=== PATIENT | female | born 1955 | race Caucasian/White ===

== ENCOUNTER → 2019-06-15 | Outpatient (CLI) | payer MEDICARE, OTHER ==
--- NOTE | 2019-06-15 10:45 | Diagnostic Imaging Report ---
PROCEDURE: CT head without contrast. TECHNIQUE: Multiple contiguous axial images were obtained through the brain without the use of intravenous contrast. Auto Exposure Controls were utilized during the CT exam to meet ALARA standards for radiation dose reduction. INDICATION: Dizziness and right upper extremity paresthesia No previous study for comparison. Ventricles and sulci are within normal limits for size. There is focal low density within the deep white matter of the left frontal lobe which extends to the left frontal horn as well as the anterior limb of left internal capsule. There is no evidence of hemorrhage. There is no abnormal mass effect or shift of midline structures. Calvarium is intact. There is mural thickening in the left maxillary sinus. IMPRESSION: Low density in deep white matter left frontal lobe could represent ischemia of indeterminate age. MRI may be of use to exclude possibility of a component of acute ischemia or developing infarct. There is chronic appearing left maxillary sinusitis. Dictated by: Dictated on workstation # [id number]
== END ==
LOC: RAD FS 10:26
PROVIDERS: ATTEND Family Medicine
DX: R90.82 White matter disease, unspecified (principal); R55 Syncope and collapse
CPT/HCPCS: 70450

== ENCOUNTER → 2020-06-23 | Outpatient (CLI) | payer MEDICARE, OTHER ==
--- NOTE | 2020-06-23 14:15 | Diagnostic Imaging Report ---
INDICATION: Pain and soreness 3 weeks COMPARISON: None. FINDINGS: Multiple radiographic views of the sacrum and coccyx were obtained and show no fractures, dislocations, or other acute bony abnormalities. Joint spaces are well maintained throughout. The soft tissues appear unremarkable. No radiopaque foreign bodies are identified. IMPRESSION: Unremarkable radiographic exam of the sacrum and coccyx. Dictated by: Dictated on workstation # [id number]
== END ==
LOC: RAD FS 13:29
PROVIDERS: ATTEND Family Medicine
DX: M53.3 Sacrococcygeal disorders, not elsewhere classified (principal)
CPT/HCPCS: 72220

== ENCOUNTER → 2021-01-16 | Outpatient (CLI) | payer MEDICARE, OTHER ==
--- NOTE | 2021-01-16 14:14 | Diagnostic Imaging Report ---
Indication: Pain and swelling in the right leg. Time of exam: 1:28 PM Curvature of the lumbar spine is normal. There is grade 1/2 spondylolisthesis of L4 on L5. Vertebral body heights are maintained. No acute compression fracture seen. There is multilevel degenerative disc disease with variable disc space narrowing and marginal spurring. There is multilevel facet arthropathy. Multiple surgical clips are identified in the right upper quadrant. Impression: Lumbar spondylosis and spondylolisthesis. No acute bony abnormality is detected. Dictated by: Dictated on workstation # [id number]
== END ==
LOC: RAD FS 13:08
PROVIDERS: ATTEND Nurse Practitioner
DX: M47.816 Spondylosis without myelopathy or radiculopathy, lumbar region (principal); M43.16 Spondylolisthesis, lumbar region
CPT/HCPCS: 72100

== ENCOUNTER 2021-04-02 23:53 | Emergency (ER) | payer MEDICARE, OTHER ==
[~2021-04-02] VITALS: Ht 162.5 cm; Wt 98.0 kg
--- NOTE | 2021-04-03 00:02 | ED General ---
General Stated Complaint: GENERAL PROBLEMS History of Present Illness Date Seen by Provider: Apr 03, 2021 Time Seen by Provider: 00:01 Initial Comments 65-year-old female presents with vague symptom of "feeling flushed" patient reports that happened about ago. She reports that she took 2 of her Lasix and has curious that that might of caused it. Patient is concerned that maybe her potassium might be low. Patient very nonspecific. She denies any cough, fever, nausea, vomiting, chest pain or focal weakness. Allergies and Home Medications Allergies Coded Allergies: duloxetine (Verified Allergy, Severe, 04/03/21) liver failure pregabalin (Verified Allergy, Unknown, 04/03/21) Home Medications Chlorzoxazone 500 Mg Tablet, 500 MG PO QID PRN for MUSCLE CRAMPS, (Reported) Last Action: New Order Cholecalciferol (Vitamin D3) 10 Mcg Capsule, 10 MCG PO DAILY, (Reported) Last Action: New Order Desipramine HCl 25 Mg Tablet, 25 MG PO BID, (Reported) Last Action: New Order Esomeprazole Magnesium 40 Mg Capsule.dr, 40 MG PO DAILY, (Reported) Last Action: New Order Furosemide 20 Mg Tablet, 20 MG PO PRN, (Reported) Last Action: New Order Hydrocodone/Acetaminophen 1 Each Tablet, 1 EACH PO Q6H PRN for PAIN-SEE DOSE INSTRUCTIONS, (Reported) Last Action: New Order Methadone HCl 10 Mg Tablet, 10 MG PO TID, (Reported) Last Action: New Order Multivit-Min/FA/Lycopene/Lut 1 Each Tablet, 1 EACH PO DAILY, (Reported) Last Action: New Order Potassium Chloride 20 Meq Tab.er.prt, 20 MEQ PO DAILY, (Reported) Last Action: New Order Warfarin Sodium 5 Mg Tablet, 5 MG PO DAILY, (Reported) Last Action: New Order Patient Home Medication List Home Medication List Reviewed: Yes Review of Systems Review of Systems Constitutional: see HPI Respiratory: no symptoms reported Cardiovascular: no symptoms reported Gastrointestinal: no symptoms reported Genitourinary: no symptoms reported Musculoskeletal: no symptoms reported Skin: no symptoms reported Psychiatric/Neurological: No Symptoms Reported Physical Exam Vital Signs Vital Signs - First Documented 04/02/21 23:58 Temp 36.5 Pulse 90 Resp 20 B/P (MAP) 171/88 (115) Pulse Ox 95 O2 Delivery Room Air Capillary Refill : Height, Weight, BMI Height: '" Weight: lbs. oz. kg; BMI Method: General Appearance: No Apparent Distress, WD/WN Respiratory: Lungs Clear, Normal Breath Sounds Cardiovascular: Regular Rate, Rhythm, No Edema Extremity: Normal Capillary Refill, Normal Range of Motion Neurologic/Psychiatric: Alert, Oriented x3, Normal Mood/Affect, mobile paramedical examiner II-XII Norm as Tested Skin: Warm/Dry Progress/Results/Core Measures Suspected Sepsis SIRS Temperature: Pulse: Respiratory Rate: Laboratory Tests 04/03/21 00:10: White Blood Count 9.9 Blood Pressure / Mean: Laboratory Tests 04/03/21 00:10: Creatinine 0.68, Platelet Count 364, Total Bilirubin 0.2 Results/Orders Lab Results Laboratory Tests Test 04/03/21 00:10 04/03/21 00:29 Range/Units White Blood Count 9.9 4.3-11.0 10^3/uL Red Blood Count 4.66 4.35-5.85 10^6/uL Hemoglobin 14.6 11.5-16.0 G/DL Hematocrit 43 35-52 % Mean Corpuscular Volume 92 80-99 FL Mean Corpuscular Hemoglobin 31 25-34 PG Mean Corpuscular Hemoglobin Concent 34 32-36 G/DL Red Cell Distribution Width 12.9 10.0-14.5 % Platelet Count 364 130-400 10^3/uL Mean Platelet Volume 9.0 7.4-10.4 FL Immature Granulocyte % (Auto) 0 % Neutrophils (%) (Auto) 50 42-75 % Lymphocytes (%) (Auto) 36 12-44 % Monocytes (%) (Auto) 8 0-12 % Eosinophils (%) (Auto) 5 0-10 % Basophils (%) (Auto) 1 0-10 % Neutrophils # (Auto) 4.9 1.8-7.8 X 10^3 Lymphocytes # (Auto) 3.6 1.0-4.0 X 10^3 Monocytes # (Auto) 0.8 0.0-1.0 X 10^3 Eosinophils # (Auto) 0.5 H 0.0-0.3 10^3/uL Basophils # (Auto) 0.1 0.0-0.1 10^3/uL Immature Granulocyte # (Auto) 0.0 0.0-0.1 10^3/uL Sodium Level 139 135-145 MMOL/L Potassium Level 4.0 3.6-5.0 MMOL/L Chloride Level 102 98-107 MMOL/L Carbon Dioxide Level 27 21-32 MMOL/L Anion Gap 10 5-14 MMOL/L Blood Urea Nitrogen 12 7-18 MG/DL Creatinine 0.68 0.60-1.30 MG/DL Estimat Glomerular Filtration Rate 86 BUN/Creatinine Ratio 18 Glucose Level 120 H 70-105 MG/DL Calcium Level 9.1 8.5-10.1 MG/DL Corrected Calcium 9.0 8.5-10.1 MG/DL Magnesium Level 2.2 1.6-2.4 MG/DL Total Bilirubin 0.2 0.1-1.0 MG/DL Aspartate Amino Transf (AST/SGOT) 32 5-34 U/L Alanine Aminotransferase (ALT/SGPT) 51 0-55 U/L Alkaline Phosphatase 176 H 40-136 U/L Troponin I < 0.30 <0.30 NG/ML Total Protein 6.6 6.4-8.2 GM/DL Albumin 4.1 3.2-4.5 GM/DL Urine Color YELLOW Urine Clarity SL CLOUDY Urine pH 5.5 5-9 Urine Specific [place] 1.025 H 1.016-1.022 Urine Protein NEGATIVE NEGATIVE Urine Glucose (UA) NEGATIVE NEGATIVE Urine Ketones TRACE H NEGATIVE Urine Nitrite NEGATIVE NEGATIVE Urine Bilirubin NEGATIVE NEGATIVE Urine Urobilinogen 0.2 < = 1.0 MG/DL Urine Leukocyte Esterase 1+ H NEGATIVE Urine RBC (Auto) NEGATIVE NEGATIVE Urine RBC RARE /HPF Urine WBC 5-10 H /HPF Urine Squamous Epithelial Cells 5-10 /HPF Urine Crystals NONE /LPF Urine Bacteria MODERATE H /HPF Urine Casts NONE /LPF Urine Mucus SMALL H /LPF Urine Culture Indicated YES My Orders Orders - AZAR,MICHELLE L DO Cbc With Automated Diff (04/03/21 00:02) Comprehensive Metabolic Panel (04/03/21 00:02) Magnesium (04/03/21 00:02) Ua Culture If Indicated (04/03/21:02) Accucheck Stat ONCE (04/03/21 00:02) Troponin I Fs (04/03/21 00:02) Ekg Tracing (04/03/21 00:02) Monitor-Rhythm Ecg Trace Only (04/03/21 00:02) Urine Culture (04/03/21 00:29) Nitrofurantoin Capsule,Macro (Macrobid C (04/03/21 01:15) Vital Signs/I&O 04/02/21 23:58 Temp 36.5 Pulse 90 Resp 20 B/P (MAP) 171/88 (115) Pulse Ox 95 O2 Delivery Room Air Capillary Refill : Progress Note : Progress Note Patient's urinalysis is consistent with a potential urinary tract infection. Patient otherwise normal labs, patient will be treated with Macrobid for urinary tract infection. Patient stable and discharged home ECG Initial ECG Impression Date: Apr 03, 2021 Initial ECG Impression Time: 00:16 Initial ECG Rate: 82 Initial ECG Rhythm: Normal Sinus Initial ECG Impression: Nonspecific Changes Departure Impression Primary Impression: Urinary tract infection Qualified Codes: N30.01 - Acute cystitis with hematuria Disposition: HOME, SELF-CARE Condition: Stable Departure-Patient Inst. Referrals: MARIA DE JESUS ARMSTRONG MD (PCP/Family) Primary Care Physician Patient Instructions: Urinary Tract Infection, Adult (DC) Scripts Nitrofurantoin Macrocrystal (Nitrofurantoin) 100 Mg Capsule 100 MG PO BID, #10 CAP 0 Refills Prov: MICHELLE AZAR DO 04/03/21 MICHELLE AZAR DO Apr 03, 2021 00:02
[2021-04-03] MEDS ORDERED: POTA20TA15 PO (00:41)
[2021-04-03] MEDS ORDERED: WARF-48 PO (00:41)
[2021-04-03] MEDS ORDERED: DESI25TA PO (00:41)
[2021-04-03] MEDS ORDERED: CHLO500T4 PO (00:41)
[2021-04-03] MEDS ORDERED: MULT-1029 PO (00:41)
[2021-04-03] MEDS ORDERED: METH10TA2 PO (00:41)
[2021-04-03] MEDS ORDERED: FURO20TA4 PO (00:41)
[2021-04-03] MEDS ORDERED: HYDR-3820 PO (00:41)
[2021-04-03] MEDS ORDERED: ESOM40CA52 PO (00:41)
[2021-04-03] MEDS ORDERED: CHOL400C9 PO (00:41)
[2021-04-03 00:42] LABS: BILIRUBIN,URINE NEGATIVE (NEGATIVE); COLOR,URINE YELLOW; GLUCOSE, URINE (UA) NEGATIVE (NEGATIVE); KETONES,URINE TRACE (NEGATIVE); LEUKOCYTE ESTERASE ,URINE 1+ (NEGATIVE); NITRITE,URINE NEGATIVE (NEGATIVE); PH,URINE 5.5 (5-9); PROTEIN,URINE NEGATIVE (NEGATIVE)
[2021-04-03 00:43] LABS: HEMATOCRIT 43 % (35-52); HEMOGLOBIN 14.6 G/DL (11.5-16.0); LYMPHOCYTES % (AUTO) 36 % (12-44); MEAN CORPUSCULAR HEMOGLOBIN 31 PG (25-34); MEAN CORPUSCULAR HGB CONC 34 G/DL (32-36); MEAN CORPUSCULAR VOLUME 92 FL (80-99); MONOCYTES % (AUTO) 8 % (0-12); NEUTROPHILS % (AUTO) 50 % (42-75); PLATELET COUNT 364 10^3/uL (130-400); WHITE BLOOD COUNT 9.9 10^3/uL (4.3-11.0)
[2021-04-03 00:44] LABS: BASOPHILS # (AUTO) 0.1 10^3/uL (0.0-0.1); BASOPHILS % (AUTO) 1 % (0-10); EOSINOPHILS # (AUTO) 0.5 10^3/uL (0.0-0.3); EOSINOPHILS % (AUTO) 5 % (0-10); LYMPHOCYTES # (AUTO) 3.6 X 10^3 (1.0-4.0); MONOCYTES # (AUTO) 0.8 X 10^3 (0.0-1.0); NEUTROPHILS # (AUTO) 4.9 X 10^3 (1.8-7.8)
[2021-04-03 00:53] LABS: CARBON DIOXIDE 27 MMOL/L (21-32); CHLORIDE 102 MMOL/L (98-107); SODIUM 139 MMOL/L (135-145)
[2021-04-03 00:54] LABS: ALANINE AMINOTRANSFERASE 51 U/L (0-55); ALBUMIN 4.1 GM/DL (3.2-4.5); ALKALINE PHOSPHATASE 176 U/L (40-136); BILIRUBIN,TOTAL 0.2 MG/DL (0.1-1.0); BUN/CREATININE RATIO 18; CALCIUM 9.1 MG/DL (8.5-10.1); CREATININE SERUM 0.68 MG/DL (0.60-1.30); GFR ESTIMATED 86; GLUCOSE 120 MG/DL (70-105); MAGNESIUM 2.2 MG/DL (1.6-2.4); TOTAL PROTEIN 6.6 GM/DL (6.4-8.2)
[2021-04-03 01:06] LABS: BACTERIA,URINE MODERATE /HPF; RBC,URINE RARE /HPF
[2021-04-03 01:07] LABS: CLARITY,URINE SL CLOUDY
[2021-04-03] MEDS ORDERED: NITROFURANTOIN 100 MG (MACROBID) CAPSULE PO ONE (01:15)
[2021-04-03] MEDS ORDERED: NITR100C PO (01:15)
[2021-04-03 01:32] VITALS: BP 162/80
--- OUTSIDE RECORDS SUMMARY | 2021-04-03 22:43 | XMS REPORT | Encounter Summary ---
Author Author [facility] Organization [facility] Address Unknown Phone Unavailable Care Team Providers Care Coffee Supervisor Name Role Phone Jacob Messina RN Unavailable Dakotah Evans MD Unavailable Yosvany Muller MD PCP Encounter Details Care Team Description Date Type Department 02/21/2021 Travel Social History Date Tobacco Use Types Packs/Day Years Used Never Smoker Smokeless Tobacco: Never Used Drinks/Week oz/Week Comments Alcohol Use 0 Standard drinks or equivalent 0.0 No Sex Assigned at Date Recorded Female 02/09/2021 12:35 PM CDT Date Recorded COVID-19 Exposure Response 02/21/2021 8:48 AM CDT In the last month, have you been in contact with Yes someone who was confirmed or suspected to have Coronavirus / COVID-19? documented as of this encounter Functional Status Date of Assessment Functional Status Response 02/10/2021 Does the patient have a hearing impairment: No 02/10/2021 Does the patient have a visual impairment: Yes 02/10/2021 Does the patient have impaired ambulation: No 02/10/2021 Does the patient have an activity of daily living No (ADL) impairment: 02/10/2021 Does the patient have an instrumental activity of No daily living (IADL) impairment: Date of Assessment Cognitive Status Response 02/10/2021 Does the patient have a cognitive impairment: No documented as of this encounter Plan of Treatment Not on filedocumented as of this encounter Visit Diagnoses Not on filedocumented in this encounter Additional Health Concerns Assessment Noted Time A fall risk assessment has been completed for the pat ient 02/21/2021 9:53 AM CDT PHQ-2 Depression Total Score: 0 02/10/2021 10:33 AM CDT documented as of this encounter
--- OUTSIDE RECORDS SUMMARY | 2021-04-03 22:43 | XMS REPORT | Encounter Summary ---
Author Author [facility] Organization [facility] Address Unknown Phone Unavailable Care Team Providers Care Game Designer/Creative Director Name Role Phone Jacob Messina RN Unavailable Dakotah Evans MD Unavailable Yosvany Muller MD PCP Reason for Visit * Reason Comments Hopper Encounter Details Care Team Description Date Type Department Jenna San, FINGER COBBLER-AERIAL INSTALLER [address] [place] [address] 04/03/2021 Office Visit Hepatology: [facility] [address] [facility] [address] [place] [address] Social History Date Tobacco Use Types Packs/Day Years Used Never Smoker Smokeless Tobacco: Never Used Tobacco Cessation: Counseling Given: No Drinks/Week oz/Week Comments Alcohol Use 0 Standard drinks or equivalent 0.0 No Sex Assigned at Date Recorded Female 02/09/2021 12:35 PM CDT Date Recorded COVID-19 Exposure Response 04/03/2021 1:38 PM CDT In the last month, have you been in contact with No / Unsure someone who was confirmed or suspected to have Coronavirus / COVID-19? documented as of this encounter Last Filed Vital Signs Reading Time Taken Comments Vital Sign 143/72 04/03/2021 1:47 PM CDT Blood Pressure 90 04/03/2021 1:47 PM CDT Pulse - - Temperature - - Respiratory Rate 98% 04/03/2021 1:47 PM CDT Oxygen Saturation - - Inhaled Oxygen Concentration 99.3 kg (219 lb) 04/03/2021 1:47 PM CDT Weight 162.6 cm (5' 4") 04/03/2021 1:47 PM CDT Height 37.59 04/03/2021 1:47 PM CDT Body Mass Index documented in this encounter Functional Status Date of Assessment Functional Status Response 04/03/2021 Does the patient have a hearing impairment: No 04/03/2021 Does the patient have a visual impairment: Yes 04/03/2021 Does the patient have impaired ambulation: No 04/03/2021 Does the patient have an activity of daily living No (ADL) impairment: 04/03/2021 Does the patient have an instrumental activity of No daily living (IADL) impairment: Date of Assessment Cognitive Status Response 04/03/2021 Does the patient have a cognitive impairment: No documented as of this encounter Patient Instructions * Patient Instructions* Te Priest RN - 04/03/2021 2:30 PM CDT Follow up to schedule: -RTC with Dr. Evans in hepatology clinic in 1 year, TH Today you saw Jenna San APRN in clinic and discussed the following: -Please continue to follow with your primary care to stay up to date on your [facility] health maintenance. -We will have our research coordinator call you about research program and requi rements. Office MA: - Please ALWAYS let me know if you have labs or imaging done outside of [facility] so I ca n promptly request these results. documented in this encounter Plan of Treatment Not on filedocumented as of this encounter Visit Diagnoses Not on filedocumented in this encounter Additional Health Concerns Assessment Noted Time A fall risk assessment has been completed for the pat ient 04/03/2021 1:47 PM CDT PHQ-2 Depression Total Score: 0 04/03/2021 1:47 PM CDT documented as of this encounter
--- OUTSIDE RECORDS SUMMARY | 2021-04-03 22:43 | XMS REPORT | Encounter Summary ---
Author Author [facility] Organization [facility] Address Unknown Phone Unavailable Care Team Providers Care Tile Presser Name Role Phone Jacob Messina RN Unavailable Dakotah Evans MD Unavailable Yosvany Muller MD PCP Reason for Visit * Reason Comments Records Request recent labs Encounter Details Care Team Description Date Type Department Dakotah Evans MD [address] [facility] [id number] [place] [address] Records Request (recent labs) 02/10/2021 Documentation Hepatology: [facility], [facility] [address] [facility] [address] [place] [address] Social History Date Tobacco Use Types Packs/Day Years Used Never Smoker Smokeless Tobacco: Never Used Drinks/Week oz/Week Comments Alcohol Use 0 Standard drinks or equivalent 0.0 No Sex Assigned at Date Recorded Female 02/09/2021 12:35 PM CDT Date Recorded COVID-19 Exposure Response 02/10/2021 10:23 AM CDT In the last month, have [...] impairment: No documented as of this encounter Progress Notes * Brook Underwood MA - 02/10/2021 3:02 PM CDT Lab results received from pcp office per Fanny GARCIA) faxed to labct. * Brook Underwood MA - 02/10/2021 3:02 PM CDT F/U call on request for recent lab results from pcp office, per med records will fax today. * Brook Underwood MA - 02/10/2021 3:02 PM CDT Release faxed to pcp office for most recent labs for provider to review. documented in this encounter Plan of Treatment Not on filedocumented as of this encounter Visit Diagnoses Not on filedocumented in this encounter Additional Health Concerns Assessment Noted Time A fall risk assessment has been completed for the pat ient 02/10/2021 10:33 AM CDT PHQ-2 Depression Total Score: 0 02/10/2021 10:33 AM CDT documented as of this encounter
--- OUTSIDE RECORDS SUMMARY | 2021-04-03 22:43 | XMS REPORT | Encounter Summary ---
Author Author [facility] Organization [facility] Address Unknown Phone Unavailable Care Team Providers Care Director Of State Name Role Phone Jacbo Messina RN Unavailable Dakotah Evans MD Unavailable Yosvany Muller MD PCP Encounter Details Care Team Description Date Type Department Kathrin Wu RN Encounter for screening laboratory testi ng for COVID-19 virus in asymptomatic patient 02/13/2021 Orders Only Interventional Radi ology: [facility], [address], [address] [facility] [place] [id number] Social History Date Tobacco Use Types [...] filedocumented as of this encounter Visit Diagnoses Diagnosis Encounter for screening laboratory test ing for COVID-19 virus in asymptomatic patient documented in this encounter Additional Health Concerns Assessment Noted Time A fall risk assessment has been completed for the pat ient 02/10/2021 10:33 AM CDT PHQ-2 Depression Total Score: 0 02/10/2021 10:33 AM CDT documented as of this encounter
--- OUTSIDE RECORDS SUMMARY | 2021-04-03 22:43 | XMS REPORT | Clinical Summary ---
Author Author [facility] Organization [facility] Address Unknown Phone Unavailable Care Team Providers Care New Media Strategist Name Role Phone Jacob Messina RN Unavailable Shikha Evans MD Unavailable Yosvany Muller MD PCP Source Comments Some departments are not documenting in the electronic medical record. If you d o not see the information that you expected, contact Release of Information in [facility] [employer] Information Management department at [phone] for further assistan ce in locating additional records.[facility] Allergies Comments Active Allergy Reactions Severity Noted Date abdominal pain Duloxetine NAUSEA ONLY High 06/01/2016 abdominal pain Pregabalin NAUSEA ONLY High 06/01/2016 Medications End Date Status Medication Sig Dispensed Refills Start Date Active HYDROcodone/acetaminophen Take 1 Tab by 0 (+) (NORCO) 10/325 mg mouth every 6 tablet hours as needed for Pain Active methadone (DOLOPHINE; Take 10 mg by 0 METHADOSE) 10 mg tablet mouth three times daily Active furosemide (LASIX) 20 mg Take 20 mg by 0 tablet mouth as Needed. Active promethazine (PHENERGAN) Take 25 mg by 0 25 mg tablet mouth every 6 hours as needed for Nausea or Vomiting. Active potassium chloride SR Take 20 mEq 0 (K-DUR) 20 mEq tablet by mouth daily. Take with a meal and a full glass of water. Active chlorzoxazone(+) (PARAFON Take 500 mg 0 FORTE) 500 mg tablet by mouth four times daily as needed for Muscle Cramps. Active desipramine(+) Take 25 mg by 0 (NORPRAMIN) 25 mg tablet mouth twice daily. Active cholecalciferol (VITAMIN Take 1,000 0 D-3) 1,000 units tablet Units by mouth daily. Active CALCIUM CARBONATE Take 1,200 mg 0 (CALCIUM 600 PO) by mouth daily. Active esomeprazole DR(+) TAKE 1 60 capsule 0 01 (NEXIUM) 40 mg CAPSULE BY 8 capsuleIndications: MOUTH TWICE Gastroesophageal reflux DAILY BEFORE disease, esophagitis MEALS. TAKE presence not specified ON AN EMPTY STOMACH AT LEAST 1 HOUR BEFORE OR 2 HOURS AFTER FOOD Active warfarin (COUMADIN) 5 mg Take 5 mg by 0 tablet mouth four times weekly. 2 1/2 three days a week Active Problems Problem Noted Date ISLAS (nonalcoholic steatohepatitis) 01/31/2020 Vitamin D deficiency 01/31/2020 GERD (gastroesophageal reflux disease) 08/09/2017 Overview: Formatting of this note might be differ ent from the original. Added automatically from request for kindra connolly [id number] Esophagitis, eosinophilic 08/09/2017 Overview: Formatting of this note might be differ ent from the original. Added automatically from request for kindra connolly [id number] Nausea 08/09/2017 Overview: Formatting of this note might be differ ent from the original. Added automatically from request for kindra connolly [id number] Abdominal pain 08/09/2017 Overview: Formatting of this note might be differ ent from the original. Added automatically from request for kindra connolly [id number] Chronic neck pain 07/05/2017 Peripheral cyanosis 07/05/2017 Numbness and tingling sensation of skin 03/14/2017 Dyspnea 12/18/2016 Dysphagia 12/18/2016 Chronic liver disease 11/20/2016 Dermatitis 11/20/2016 Fibromyalgia 11/20/2016 Chronic fatigue 11/20/2016 Myalgia 11/20/2016 Hepatic granuloma associated with sarcoidosis 2016 Resolved Problems Problem Noted Date Resolved Date H/O systemic lupus erythematosus (SLE) 11/20/2016 07/05/2017 Encounters Care Team Description Date Type Specialty Jenna San, CHEESE CUTTER-OYSTER FLOATER 04/03/2021 Office Visit Hepatology 04/03/2021 Travel Pepe Gilman MD Sage, Ingrid, RT(R)(),LRT Sky Linares, RN ISLAS (nonalcoholic steatohepatitis) 02/21/2021 Hospital Radiology Encounter 02/21/2021 Travel Earle Hernandez, TAYLER Encounter for screening laboratory testi ng for COVID-19 virus in asymptomatic patient 02/16/2021 Orders Only Radiology Kathrin Wu, RN Encounter for screening laboratory testi ng for COVID-19 virus in asymptomatic patient 02/13/2021 Orders Only Radiology Shikha Evans MD 02/10/2021 Hospital Lab Encounter Shikha Evans MD ISLAS (nonalcoholic steatohepatitis) (Cynthia lily Dx); Vitamin D deficiency 02/10/2021 Office Visit Hepatology Shikha Evans MD Records Request (recent labs) 02/10/2021 Documentation Hepatology 02/10/2021 Travel Shikha Evans MD Other (rescheduling) 01/09/2021 Telephone Hepatology from Last 3 Months Surgical History Surgery Date Site/Laterality Comments ERCP LIVER BIOPSY BREAST REDUCTION Bilateral NECK SURGERY Bilateral APPENDECTOMY SHOULDER SURGERY FOOT SURGERY HX CHOLECYSTECTOMY KNEE SURGERY UPPER GASTROINTESTINAL 09/12/2017 N/A EGD wit h biopsies for f/u on EOE performed by ENDOSCOPY Tigre Fields MD at ENDO/GI UPPER GASTROINTESTINAL 09/12/2017 ESOPHAGOGASTROD UODENOSCOPY BIOPSY performed by ENDOSCOPY Tigre Fields MD at ENDO/GI UPPER GASTROINTESTINAL 04/10/2017 N/A ESOPHAG OGASTRODUODENOSCOPY performed by ENDOSCOPY Enio Ramirez MBBS at ENDO/GI UPPER GASTROINTESTINAL 04/10/2017 N/A ESOPHAG OGASTRODUODENOSCOPY BIOPSY performed by ENDOSCOPY Enio Ramirez MBBS at ENDO/GI Medical History Medical History Date Comments Lupus (HCC) Fibromyalgia Liver problem Pulmonary embolism (HCC) Family History Medical History Relation Name Comments Heart Attack Father Arthritis Mother COPD Mother Diabetes Mother Melanoma Neg Hx Relation Name Status Comments Daughter Alive Father Mother Son Alive Social History Date Tobacco Use Types Packs/Day [...] or suspected to have Coronavirus / COVID-19? Last Filed Vital Signs Reading Time Taken Comments Vital Sign 143/72 04/03/2021 1:47 PM CDT Blood Pressure 90 04/03/2021 1:47 PM CDT Pulse 36.7 C (98 F) 02/21/2021 10:49 AM CDT Temperature 16 01/29/2020 11:02 AM CDT Respiratory Rate 98% 04/03/2021 1:47 PM CDT Oxygen Saturation - - Inhaled Oxygen Concentration 99.3 kg (219 lb) 04/03/2021 1:47 PM CDT Weight 162.6 cm (5' 4") 04/03/2021 1:47 PM CDT Height 37.59 04/03/2021 1:47 PM CDT Body Mass Index Plan of Treatment Health Maintenance Due Date Last Done Comments MEDICARE ANNUAL WELLNESS 1955 VISIT DTAP/TDAP VACCINES (1 - 10/29/1971 Tdap) PHYSICAL (COMPREHENSIVE) 10/29/1971 EXAM BREAST CANCER SCREENING 1993 SHINGLES RECOMBINANT 10/29/2003 VACCINE (1 of 2) PNEUMONIA (PPSV23) 2018 VACCINE (1 of 1 - PPSV23) INFLUENZA VACCINE 05/26/2021 COLORECTAL CANCER 11/24/2022 11/24/2012 SCREENING (Previously completed) HEPATITIS C SCREENING Completed 11/20/2016 OSTEOPOROSIS Completed 08/09/2017 SCREENING/MONITORING Procedures Comments Procedure Name Priority Date/Time Associated Diag nosis IR PERCUTANEOUS LIVER Routine 02/21/2021 ISLAS (no nalcoholic BIOPSY 10:50 AM CDT steatohepatitis) HC SPECIAL STAINS #1 Routine 02/21/2021 ISLAS (non alcoholic (PATHOLOGY) 9:45 AM CDT steatohepatitis) HC CBC W/ AUTOMATED DIFF Routine 02/10/2021 ISLAS (nonalcoholic 12:30 PM CDT steatohepatitis) Vitamin D deficiency HC COMPREHENSIVE Routine 02/10/2021 ISLAS (nonalco holic METABOLIC PANEL 12:30 PM CDT steatohepatitis) Vitamin D deficiency HC PT(INR) Routine 02/10/2021 ISLAS (nonalcoho lic 12:30 PM CDT steatohepatitis) Vitamin D deficiency HC 25-OH VITAMIN D Routine 02/10/2021 ISLAS (nonal coholic 12:30 PM CDT steatohepatitis) Vitamin D deficiency from Last 3 Months Results * IR PERCUTANEOUS LIVER BIOPSY (02/21/2021 10:50 AM CDT) Specimen Impressions Performed At 1. Successful ultrasound guided liver biopsy as descr ibed. [facility] RES[facility] Finalized by Pepe Gilman M.D. on 11:26 AM. Dictated by Pepe Gilman M.D. on 02/21/2021 11:25 AM. Narrative Performed At Ultrasound Guided Percutaneous Liver Biopsy [facility] RES[facility] INDICATION: Hepatic fibrosis TRESTLE MECHANIC: Pepe Gilman M.D. MEDICATIONS:I was personally responsibl e for the administration of moderate sedation services during the procedure performed and I confirm requirements described in CPT section on moderate se dation were followed, including the use of an independent trained observer who had no other duties during the procedure. See nursing log for complete details; the drugs utilized were: Versed and Fentanyl. See nursing documentation for doses provided. DEVICE: 18g biopsy gun through 17g ne edle guide SPECIMENS Two 18 gauge cores COMPLICATIONS: None immediate TECHNIQUE: The risks, benefits, and alt ernatives to the procedure and sedation were explained to the patient. Written informed consent was obtained. The right flank and upper abdomen were prepped and draped in sterile fashion. Ultrasonographic evaluation of the li elizabeth was carried out. Using local anesthetic, under direct ultrasound matilde dance and with images transferred to PACS, a 17 gauge needle guide was adv anced into the liver. Two coaxial passes were made with an 18 gauge biopsy gun. The specimens were placed in formalin. The tract was embolized with a minimal amount of Gelfoam slurry and a sterile dressing was applied. The procedure was well-tolerated, and t he patient was discharged from the angio suite in satisfactory condition. FINDINGS: 1. Ultrasound evaluation shows no evide nce of intrahepatic biliary ductal dilatation. 2. Ultrasound documentation of each bio psy pass was confirmed and stored to PACS. 3. Two 18 gauge hepatic cores appeared adequate. 4. There is no evidence for complicatio n post liver biopsy. Procedure Note Interface, Radiant Results - 02/21/2021 11:29 AM CDT Ultrasound Guided Percutaneous Liver Biopsy INDICATION: Hepatic fibrosis TRESTLE MECHANIC: Pepe Gilman M.D. MEDICATIONS:I was personally responsible for the administration of moderate sedation services during the procedure performed and I confirm requirements described in CPT section on moderate sedation were followed, including the use of an independent trained observer who had no other duties during the procedure. See nursing log for complete details; the drugs utilized were: Versed and Fentanyl. See nursing documentation for doses provided. DEVICE: 18g biopsy gun through 17g needle guide SPECIMENS Two 18 gauge cores COMPLICATIONS: None immediate TECHNIQUE: The risks, benefits, and alternatives to the procedure and sedation were explained to the patient. Written informed consent was obtained. The right flank and upper abdomen were prepped and draped in sterile fashion. Ultrasonographic evaluation of the liver was carried out. Using local anesthetic, under direct ultrasound guidance and with images transferred to PACS, a 17 gauge needle guide was advanced into the liver. Two coaxial passes were made with an 18 gauge biopsy gun. The specimens were placed in formalin. The tract was embolized with a minimal amount of Gelfoam slurry and a sterile dressing was applied. The procedure was well-tolerated, and the patient was discharged from the angio suite in satisfactory condition. FINDINGS: 1. Ultrasound evaluation shows no eviden ce of intrahepatic biliary ductal dilatation. 2. Ultrasound documentation of each biop sy pass was confirmed and stored to PACS. 3. Two 18 gauge hepatic cores appeared a dequate. 4. There is no evidence for complication post liver biopsy. IMPRESSION 1. Successful ultrasound guided liver bi opsy as described. Finalized by Pepe Gilman M.D. on 02/21/2021 11:26 AM. Dictated by Pepe Gilman M.D. on 02/21/2021 11:25 AM. Performing Organization Address City/State/ZIP Code P wu Number [facility] RESULTS * PATHOLOGY/CYTOLOGY REQUEST (02/21/2021 9:45 AM CDT) PATHOLOGY [facility] [email or web address] Department of Pathology and Laboratory Medicine [address] [place] [id number] Surgical Pathology Office: [phone] SURGICAL PATHOLOGY REPORT NAME: ROCHELLE BARRIENTOS J. SURG PATH #: [id number] MR #: [id number] SPECIMEN CLASS: RONNI BILLING #: [id number] ALT ID #: LOCATION: [id number] DATE OF PROCEDURE: 02/21/2021 AGE: 65 SEX: F DATE RECEIVED: 02/21/2021 : 1955 TIME RECEIVED: 10:55 PHYSICIAN: SHIKHA EVANS DATE OF REPORT: 02/22/2021 COPY TO: DATE OF PRINTIN02/22/2021 ############################## ############################## ############ Final Diagnosis: A. Liver biopsy: Steatohepatitis with steatosis (60%), rare ballooned hepatocytes, and lobular inflammation (MARTÍN 4/8). Very minimal zone 3 perisinusoidal "delicate" fibrosis (Stage 01A/4). Comment: The histopathological changes are most consistent with active steatohepatitis, although other causes of liver injury should be clinically and serologically excluded. Steatohepatitis is a nonspecific pattern of injury seen most commonly with morbid obesity, diabetes, insulin resistance, and alcohol abuse. However, it can also be associated with nutritional causes, metabolic disorders or the result of certain medications. ACTIVITY SCORE (MARTÍN): Steatosis: 2 (33-66%); Lobular Inflammation: 1 (< 2foci/200x); Hepatocyte Balloonin (few ballooned hepatocytes); Total: 4/8 FIBROSIS: 1A Mild, zone 3, perisinusoidal "delicate" fibrosis PAS stain shows normal glycogen content and PAS/diastase is negative for unusual intrahepatocyte inclusions. Trichrome stain is used to assess the fibrosis. Iron stain is negative for increased hepatic storage iron. Reticulin stain shows intact hepatic plate architecture. Attestation: By this signature, I attest that I have personally formulated the final interpretation expressed in this report and that the above diagnosis is based upon my examination of the slides and/or other material indicated in this report. +++ +++ bm/02/21/2021 ############################## ############################## ############ Material Received: A: liver biopsy History: 65-year-old female with history of nonalcoholic steatohepatitis stage II fibrosis. Gross Description: A. Received in formalin labeled "liver biopsy" is a 1.6 x 0.2 x 0.1 cm aggregate of red-dutta cylindrical soft tissue fragments. The specimen is entirely submitted in cassette A1. The specimen is placed in formalin at 1042 on 02/21/2021. (tn) dutta/02/21/2021 Specimen Liver Performing Organization Address City/[facility]/ZIP Code P wu Number MAIN LAB [address] [place] [address] * 25-OH VITAMIN D (D2 + D3) (02/10/2021 12:30 PM CDT) Vitamin 26.9 (L) 30 - 80 NG/ML [facility] LAB D(25-OH)Total Specimen Blood Performing Organization Address City/[facility]/ZIP Code P wu Number MAIN LAB [address] [place] [address] * PROTIME INR (PT) (02/10/2021 12:30 PM CDT) INR 2.2 (H) 0.8 - 1.2 MAIN LAB Specimen Blood Performing Organization Address [facility]/ZIP [facility] P wu Number [facility] MAIN LAB [address] [place] [address] * CBC AND DIFF (02/10/2021 12:30 PM CDT) White Blood 8.7 4.5 - 11.0 K/UL MAIN LAB Cells RBC 4.62 4.0 - 5.0 M/UL MAIN LAB Hemoglobin 14.7 12.0 - 15.0 GM/DL MAIN LAB Hematocrit 42.5 36 - 45 % MAIN LAB MCV 92.0 80 - 100 FL MAIN LAB MCH 31.8 26 - 34 PG MAIN LAB MCHC 34.6 32.0 - 36.0 G/DL [facility] RDW 13.9 11 - 15 % [facility] MAIN LAB Platelet Count 371 150 - 400 K/UL [facility] MAIN LAB MPV 7.2 7 - 11 FL [facility] MAIN LAB Neutrophils 66 41 - 77 % [facility] Lymphocytes 24 24 - 44 % [facility] Monocytes 6 4 - 12 % [facility] Eosinophils 3 0 - 5 % [facility] Basophils 1 0 - 2 % [facility] MA[facility] Absolute 5.79 1.8 - 7.0 K/UL [facility] MAIN [facility] Neutrophil Count Absolute Lymph 2.03 1.0 - 4.8 K/UL [facility] Count Absolute 0.51 0 - 0.80 K/UL [facility] Monocyte Count Absolute 0.29 0 - 0.45 K/UL [facility] Eosinophil Count Absolute 0.04 0 - 0.20 K/UL [facility] MAIN [facility] Basophil Count Specimen Blood Performing Organization Address City/State/ZIP Code P wu Number [facility] [address] [place] [address] * COMPREHENSIVE METABOLIC PANEL (02/10/2021 12:30 PM CDT) Sodium 143 137 - 147 MMOL/L [facility] MAIN [facility] Potassium 3.9 3.5 - 5.1 MMOL/L [facility] Chloride 105 98 - 110 MMOL/L [facility]IN [facility] Glucose 101 (H) 70 - 100 MG/DL [facility]IN [facility] Blood Urea 12 7 - 25 MG/DL [facility] Nitrogen Creatinine 0.69 0.4 - 1.00 MG/DL [facility] Calcium 9.3 8.5 - 10.6 MG/DL [facility] Total Protein 6.9 6.0 - 8.0 G/DL [facility] Total Bilirubin 0.5 0.3 - 1.2 MG/DL [facility] MA[facility] Albumin 4.2 3.5 - 5.0 G/DL [facility] MA[facility] Alk Phosphatase 173 (H) 25 - 110 U/L [facility] MA[facility] AST (SGOT) 48 (H) 7 - 40 U/L [facility] MA[facility] CO2 27 21 - 30 MMOL/L [facility] ALT (SGPT) 105 (H) 7 - 56 U/L [facility] Anion Gap 11 3 - 12 [facility] eGFR Non >60 >60 mL/min [facility] Comment: [place] The eGFR is not validated f or use in drug dosing adjustments. Continue to use estimated creatinine clearance per dosing reference text. Please contact the Clinical Pharmacist for questions. eGFR >60 >60 mL/min [facility] [place] Comment: The eGFR is not validated for use in drug dosing adjustments. Continue to use estimated creatinine clearance per dosing reference text. Please contact the Clinical Pharmacist for questions. Specimen Blood Performing Organization Address City/State/ZIP Code P wu Number [facility] MAIN [facility] [address] [place] [address] from Last 3 Months Insurance Type Payer Benefit Subscriber ID Effective Phone Address Plan / Dates Group Medicare MEDICARE RAILROAD MEDICARE [id number] 2018-P RAILROAD resent PART A AND B Indemnity [facility] [id number] 2017-P INDEMNITY resent GENERIC [phone] [address] [facility] (Home[facility] [place], [place] [phone] Advance Directives Patient Shank Inspector Explanation Type Date Recorded Advance Directive/DPOA
--- OUTSIDE RECORDS SUMMARY | 2021-04-03 22:43 | XMS REPORT | Encounter Summary ---
Author Author [facility] Organization [facility] Address Unknown Phone Unavailable Care Team Providers Care Auto Transmission Technician Name Role Phone Jacob Messina RN Unavailable Dakotah Evans MD Unavailable Yosvany Muller MD PCP Encounter Details Care Team Description Date Type Department Earle Hernandez RN Encounter for screening laboratory testi ng for COVID-19 virus in asymptomatic patient 02/16/2021 Orders Only Interventional Radi ology: [facility], [address], [address] [facility] [place] [id number] Social History Date Tobacco Use Types [...]
--- OUTSIDE RECORDS SUMMARY | 2021-04-03 22:43 | XMS REPORT | Encounter Summary ---
Author Author [facility] Organization [facility] Address Unknown Phone Unavailable Care Team Providers Care System Planning Engineer Name Role Phone Jacob Messina RN Unavailable Dakotah Evans MD Unavailable Yosvany Muller MD PCP Encounter Details Care Team Description Date Type Department 04/03/2021 Travel Social History Date Tobacco Use Types [...]
--- OUTSIDE RECORDS SUMMARY | 2021-04-03 22:43 | XMS REPORT | Encounter Summary ---
Author Author [facility] Organization [facility] Address Unknown Phone Unavailable Care Team Providers Care Community Marketing Coordinator Name Role Phone Jacob Messina RN Unavailable Shikha Evans MD Unavailable Yosvany Muller MD PCP Reason for Referral * Radiology Services (Routine) Referred By Contact Referred To Contact Status Reason Specialty Diagnoses / Procedures Shikha Evans MD [address] [place] [id number] [place] [place] [address] [place] [id number] No Auth Needed Radiology Diagnoses ISLAS (nonalcoholic steatohepatitis) P rocedures IR PERCUTANEOUS LIVER BIOPSY Electronically signed by Shikha Evans MD at Reason for Visit * Radiology Services (Routine) Referred By Contact Referred To Contact Status Reason Specialty Diagnoses / Procedures Shikha Evans MD [address] [place] [id number] [place] [place] [address] [place] [address] No Auth Needed Radiology Diagnoses ISLAS (nonalcoholic steatohepatitis) P rocedures IR PERCUTANEOUS LIVER BIOPSY Encounter Details Care Team Description Date Type Department [place], Pepe Boateng MD [address] [id number] Ingrid Boateng RT(R)(),LRT Sky Linares RN ISLAS (nonalcoholic steatohepatitis) 02/21/2021 Hospital Interventional Radi ology: Encounter Kinga Gonzalez [facility] [address] [place] [id number] Social History Date Tobacco Use Types Packs/Day [...] Signs Reading Time Taken Comments Vital Sign 151/81 02/21/2021 12:45 PM CDT Blood Pressure 75 02/21/2021 12:45 PM CDT Pulse 36.7 C (98 F) 02/21/2021 10:49 AM CDT Temperature - - Respiratory Rate 97% 02/21/2021 12:45 PM CDT Oxygen Saturation - - Inhaled Oxygen Concentration 99.3 kg (219 lb) 02/21/2021 9:53 AM CDT Weight 162.6 cm (5' 4") 02/21/2021 9:53 AM CDT Height 37.59 02/21/2021 9:53 AM CDT Body Mass Index documented in this [...] impairment: No documented as of this encounter Discharge Instructions * Patient Instructions* Carol Gallo RN - 02/21/2021 9:39 AM CDT Images from the original note were not included. INTERVENTIONAL RADIOLOGY DISCHARGE INSTRUCTIONS PERCUTANEOUS LIVER BIOPSY A percutaneous liver biopsy is a procedure in which a tiny sample of your liver tissue is taken by using a needle inserted through your skin into your liver. The radiologist will determine whether the procedure is to be done using ultraso und or CT guidance. AFTER YOUR PROCEDURE: You will recover in Interventional Radiology for a minimum 2 hours after your procedure. You will be on bedrest with bathroom privileges after the procedure. POST-PROCEDURE PAIN: Pain control following your procedure is a priority for both you and your Phy sicians. Some soreness or tenderness at the site is to be expected for several days. W e recommend taking over the counter analgesics to help relieve this pain. Alternative methods for pain relief include but not limited to heat or cold c ompress, relaxation techniques, rest, and changing of positions. If pain continues after 5-7 days or you have severe pain not relieved by medi cation, please contact us as directed below. POST-PROCEDURE ACTIVITY: A responsible adult must drive you home. If you receive sedation, narcotic pain medication or anesthesia for the proce dure, you should not drive or operate heavy machinery or do anything that requir es concentration for at least 24 hours after procedure completion. It is recommended that a responsible adult be with you until morning. Avoid lifting more than 5 lbs. for 1 week and avoid exercises that use your a bdominal muscles. Also avoid pushing, pulling or straining. POST-PROCEDURE SITE CARE: You will have a small bandage over the procedure site. Keep this dry. You may remove it in 24 hours. You may shower in 24 hours, after removing the bandage. Do not submerge the procedure site for 1 week (no bathtub, swimming, hot tub, etc.) Do not use ointments, creams or powders on the puncture site. Be sure your hands are clean when touching near the site. DIET/MEDICATIONS: You may resume your previous diet 1-2 hours after the procedure. If you receive sedation or narcotic pain medications, avoid any foods or beve rages containing alcohol for at least 24 hours after the procedure. Please see the Medication Reconciliation sheet for instructions on resuming y our home medications. CALL THE DOCTOR IF: You have persistent nausea or vomiting. You have new or worsening belly swelling or bloating. Bright red blood soaks the bandage. You have pain not relieved by medication. Some soreness at the site is to b e expected. You have signs of infection such as: fever greater than 101F, chills, redness , warmth, swelling, drainage or pus from the puncture site. For any of the above symptoms or for problems or concerns related to the proce dure, [phone] Saturday-Saturday from 7-5p. After-hours and weekends, pl ease [phone] and ask for the Interventional Street Contractor on-faye l. YOU OR YOUR CAREGIVER SHOULD CALL 911 FOR ANY SEVERE SYMPTOMS SUCH EXCESSIVE BLEEDING, SEVERE DIZZINESS, TROUBLE BREATHING OR LOSS OF CONSCIOUSNESS. documented in this encounter Medications at Time of Discharge Start Date End Date Medication Sig Dispensed Refills CALCIUM CARBONATE Take 1,200 mg 0 (CALCIUM 600 PO) by mouth daily. chlorzoxazone(+) (PARAFON Take 500 mg 0 FORTE) 500 mg tablet by mouth four times daily as needed for Muscle Cramps. cholecalciferol (VITAMIN Take 1,000 0 D-3) 1,000 units tablet Units by mouth daily. desipramine(+) Take 25 mg by 0 (NORPRAMIN) 25 mg tablet mouth twice daily. 01/02/[address](+) TAKE 1 60 capsule 0 (NEXIUM) 40 mg CAPSULE BY capsuleIndications: MOUTH TWICE Gastroesophageal reflux DAILY BEFORE disease, esophagitis MEALS. TAKE presence not specified ON AN EMPTY STOMACH AT LEAST 1 HOUR BEFORE OR 2 HOURS AFTER FOOD furosemide (LASIX) 20 mg Take 20 mg by 0 tablet mouth as Needed. HYDROcodone/acetaminophen Take 1 Tab by 0 (+) (NORCO) 10/325 mg mouth every 6 tablet hours as needed for Pain methadone (DOLOPHINE; Take 10 mg by 0 METHADOSE) 10 mg tablet mouth three times daily potassium chloride SR Take 20 mEq 0 (K-DUR) 20 mEq tablet by mouth daily. Take with a meal and a full glass of water. promethazine (PHENERGAN) Take 25 mg by 0 25 mg tablet mouth every 6 hours as needed for Nausea or Vomiting. warfarin (COUMADIN) 5 mg Take 5 mg by 0 tablet mouth four times weekly. 2 1/2 three days a week documented as of this encounter Discharge Disposition Code Departure Means Destination Disposition Walk-out Home or Self Care documented in this encounter Progress Notes * Kathrin Wu RN - 02/21/2021 11:00 AM CDT Due to upcoming scheduled procedure, the patient has been ordered to schedule a COVID-19 PCR Swab test to be completed prior to the scheduled procedure on 2020. Per our phone discussion, you may obtain your COVID test locally. has sent a COVID test order to [facility] in [place], [place]. Steven guzmán contact [facility] at [phone] to schedule the COVID PCR swa b test on 02/14 or 02/15.. Please ask them to fax the COVID test results to Attention: Kathrin at fax: prior to your procedure scheduled on 02/21/2021. >Please bring your identification and insurance card with you for this appointment. Patient verbalized understanding. No further questions at this time. HAVEN Birch, RN, CMSRN * Kathrin Wu RN - 02/21/2021 11:00 AM CDT Interventional Radiology Outpatient Scheduling Checklist 1. Name of Procedure(s): Liver Biopsy NOTE: COVID test scheduled at [facility] at [facility] in [place], [place] on 02/14; request fax results to IR-adrn 2. Date of Procedure: 02/21/2021 3. Arrival Time: 1000 4. Procedure Time: 1100 5. Correct Procedural Room Assignment: ICC Room 1 6. Blood Thinners Triaged and instructed per protocol: Y/N/NA: Yes. Pt inst ructed to hold Warfarin from 02/16-02/21 and may resume on 02/22. Pt instructed to call prescribing physician to discuss any questions or concerns with holding th is medication. Pt verbalized understanding. Confirmed accurate instructions sent to patient: Y/N: Yes 7. Procedure Order Verified: Y/N: Yes 9. Patient instructed to have a bus van driver: Y/N/NA: Yes 10. Patient instructed on NPO status: Y/N/NA: Yes, 0300 & 0900 Confirmed accurate instructions sent to patient: Y/N: Yes 11. Specimen needed: Y/N/NA: Yes Verified Order placed: Y/N: Yes 12. Allergies Verified: Y/N: Yes 13. Is there an Iodine Allergy: Y/N: No Does the Procedure Require contrast: Y/N: NO If so, was the IR- Contrast Allergy Pre-Procedure Medication protocol ordered: Y /NA: NA 14. Does the patient have labs according to IR Pre-procedure Laboratory Paramet er policy: Y/N/NA: Yes If No, was the patient instructed to obtain labs prior to procedure: Y/N/NA: NA 15. Will the patient need to be admitted or have a possible admission: Y/N: No If yes, confirmed accurate instructions sent to patient: Y/N/NA: NA 16. Patient States Understanding: Y/N: Yes 17. History of PETE: Y/N: No If yes, confirm request to bring CPAP sent to patient: Y/N/NA: NA 18. Patient declines electronic procedure instructions: Y/N: No; my chart * Sky Linares RN - 02/21/2021 10:39 AM CDT Sedation physician present in room. Recent vitals and patient condition reviewed between sedating physician and nurse. Reassessment completed. Determination made to proceed with planned sedation. documented in this encounter H&P Notes * Aimee Boo APRN-NP - 02/21/2021 9:41 AM CDT IR Pre-Procedure History and Physical/Sedation Plan Procedure Date: 02/21/2021 Planned Procedure(s): Liver biopsy Procedural code status: No Order Indication: ISLAS Chief Complaint: Elevated LFTS History of Present Illness: Rochelle Barrientos is a 65 y.o. female with a histo ry as listed below who presents today for procedure. She denies concerns and has had multiple liver bx before. 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 Medical History: Diagnosis Date Fibromyalgia Liver problem Lupus (HCC) Pulmonary embolism (HCC) Surgical History: Procedure Laterality Date ESOPHAGOGASTRODUODENOSCOPY N/A 04/10/2017 Performed by Enio Ramirez MBBS at [facility] ESOPHAGOGASTRODUODENOSCOPY BIOPSY N/A 04/10/2017 Performed by Enio Ramirez MBBS at [facility] EGD with biopsies for f/u on EOE N/A 09/12/2017 Performed by Tigre Fields MD at [facility] ESOPHAGOGASTRODUODENOSCOPY BIOPSY 09/12/2017 Performed by Tigre Fields MD at [facility] APPENDECTOMY BREAST REDUCTION Bilateral ERCP FOOT SURGERY HX CHOLECYSTECTOMY KNEE SURGERY LIVER BIOPSY NECK SURGERY Bilateral SHOULDER SURGERY Social History Tobacco Use Smoking status: Never Smoker Smokeless tobacco: Never Used Substance Use Topics Alcohol use: No Alcohol/week: 0.0 standard drinks Family History Problem Relation Age of Onset Diabetes Mother Arthritis Mother COPD Mother Heart Attack Father Melanoma Neg Hx Medications Prior to Admission Medication Sig Dispense Refill Last Dose CALCIUM CARBONATE (CALCIUM 600 PO) Take 1,200 mg by mouth daily. 02/20/2021 chlorzoxazone(+) (PARAFON FORTE) 500 mg tablet Take 500 mg by mouth four abdulkadir es daily as needed for Muscle Cramps. 02/21/2021 cholecalciferol (VITAMIN D-3) 1,000 units tablet Take 1,000 Units by mouth d aily. 02/20/2021 desipramine(+) (NORPRAMIN) 25 mg tablet Take 25 mg by mouth twice daily. esomeprazole DR(+) (NEXIUM) 40 mg capsule TAKE 1 CAPSULE BY MOUTH TWICE ZOË Y BEFORE MEALS. TAKE ON AN EMPTY STOMACH AT LEAST 1 HOUR BEFORE OR 2 HOURS AFTER FOOD 60 capsule 0 02/20/2021 furosemide (LASIX) 20 mg tablet Take 20 mg by mouth as Needed. 02/20/2021 HYDROcodone/acetaminophen(+) (NORCO) 10/325 mg tablet Take 1 Tab by mouth ev rob 6 hours as needed for Pain 02/21/2021 methadone (DOLOPHINE; METHADOSE) 10 mg tablet Take 10 mg by mouth three time s daily 02/21/2021 potassium chloride SR (K-DUR) 20 mEq tablet Take 20 mEq by mouth daily. Take with a meal and a full glass of water. 02/20/2021 promethazine (PHENERGAN) 25 mg tablet Take 25 mg by mouth every 6 hours as n eeded for Nausea or Vomiting. 02/20/2021 warfarin (COUMADIN) 5 mg tablet Take 5 mg by mouth four times weekly. 2 1/2 three days a week 02/16/2021 Allergies Allergen Reactions Cymbalta [Duloxetine] NAUSEA ONLY abdominal pain Lyrica [Pregabalin] NAUSEA ONLY abdominal pain Review of Systems A comprehensive review of systems was negative. Previous Personal Anesthetic/Sedation History: Denies adverse events related to sedation/anesthesia. Previous Family Anesthetic/Sedation History: Denies adverse events related to se dation/anesthesia. Physical Exam: Vital Signs: Last Filed In 24 Hours Vital Signs: 24 Hour Range BP: 146/88 (02/21 953) Temp: 36.9 C (98.4 F) (02/21 953) Pulse: 81 (02/21 953) Respirations: 18 PER MINUTE (02/21 953) SpO2: 99 % (02/21 953) Height: 162.6 cm (64") (02/21 953) BP: (146)/(88) Temp: [36.9 C (98.4 F)] Pulse: [81] Respirations: [18 PER MINUTE] SpO2: [99 %] Intensity Pain Scale (Self Report): 6 (02/21/21 0953) General appearance: Alert and no distress noted. Neurologic: Grossly normal. Lungs: Non labored at rest. Heart: Regular rate and rhythm Abdomen: Non-distended Airway: airway assessment performed Mallampati II (soft palate, uvula, fauces v isible) Head and Neck: no abnormalities noted Mouth: no abnormalities noted NPO status: Acceptable Status: Not Anesthesia Classification: ASA III (A patient with a severe systemic disease th at limits activity, but is not incapacitating) Pre-operative anxiolysis Plan: Midazolam Sedation/Medication Plan: Fentanyl, Lidocaine and Midazolam Discussion/Reviews: Physician has discussed risks and alternatives of this type of sedation and above planned procedures with patient Lab/Radiology/Other Diagnostic Tests: Labs: Pertinent labs reviewed Aimee EVERTON Cohen Pager [phone] documented in this encounter Miscellaneous Notes * Patient Education - Kathrin Wu RN - 02/21/2021 11:00 AM CDT Dear Ms. Barrientos, Thank you for choosing [facility] Interventional Rad iology for your procedure. Your appointment information is listed below: Appointment Date: 02/21/2021 Appointment Time: 11:00 AM Arrival Time: 10:00 AM Location: [facility]: [address] [place] [address] Parking: available in the front of the building INTERVENTIONAL RADIOLOGY PRE-PROCEDURE INSTRUCTIONS SEDATION You are scheduled for a procedure in Interventional Radiology with procedural se dation. Please follow these instructions and any direction from your Primary Ca re/Managing Physician. If you have questions about your procedure or need to re schedule please call [phone]. Medication Instructions: You may take the following medications with a small sip of water: <ALL MEDICATIONS EXCEPT WARFARIN.> Do not take the following medications: <DO NOT TAKE WARFARIN FROM 02/16- 02/21/2021. YOU MAY RESUME WARFARIN THE DAY AFTER THE PROCEDURE ON 02/22. PLEASE CONTACT YOUR PRESCRIBING PHYSICIAN TO DISCUSS ANY CONCERNS WITH HOLDING THIS MEDICATION.> Diet Instructions: a. (8) hours before your procedure (3:00 AM), stop your regular diet and start a clear liquid diet. b. (6) hours before your procedure, discontinue tube feedings and chewing tobacc o. c. (2) hours before your procedure (9:00 AM) discontinue clear liquids. You nba uld have nothing by mouth. This includes GUM or CANDY. Clear Liquid Diet Water Apple or White Grape Juice Coffee or tea without cream Tea White Cranberry Juice Chicken Bouillon or Broth (no noodles) Soda Pop Popsicles Beef Bouillon or Broth (no noodles) Day of Exam Instructions: 1. Bathe or shower with an antibacterial soap prior to your appointment. 2. If you have a history of Obstructive Sleep Apnea (PETE) bring your CPAP/BIPAP. 3. Bring a list of your current medications and the dosages. 4. Wear comfortable clothing and leave valuables at home. 5. Arrive (1) hour prior to your appointment. This time will be spent registeri ng, interviewing, assessing, educating and preparing you for the test. You will be with us anywhere from 30 minutes to 6 hours after your exam depe nding on your procedure. 6. You may be sedated for the procedure. A responsible adult must drive you home (no Uber, taxis or buses are allowed) and stay with you overnight. If you do not have a bus van driver we will be unable to perform your procedure. 7. You will not be able to return to work or drive the same day if receiving sed ation. * Procedures (Immed Post or Bedside) - Pepe Gilman MD - 02/21/2021 10:48 AM CDT Immediate Post Procedure Note Date: 02/21/2021 Attending Physician: Pepe Gilman MD Consent: Consent obtained from patient. Time out performed: Consent obtained, correct patient verified, correct procedur e verified, correct site verified, patient marked as necessary. Pre/Post Procedure Diagnosis/Indication: Liver fibrosis Anesthesia: conscious Procedure(s): Percutaneous Liver Biopsy. Please see separate PACS dictation for further detail. Findings: Increased hepatic echogenicity consistent with fatty replacement. Unco mplicated biopsy. Estimated Blood Loss: None/Negligible Specimen(s) Removed/Disposition: Two 18 gauge cores. Complications: None Patient Tolerated Procedure: Well Post-Procedure Condition: Stable Pepe Gilman MD documented in this encounter Plan of Treatment Not on filedocumented as of this encounter Procedures Comments Procedure Name Priority Date/Time Associated Diag nosis IR PERCUTANEOUS LIVER Routine 02/21/2021 ISLAS (no nalcoholic BIOPSY 10:50 AM CDT steatohepatitis) HC SPECIAL STAINS #1 Routine 02/21/2021 ISLAS (non alcoholic (PATHOLOGY) 9:45 AM CDT steatohepatitis) documented in this encounter Results * IR PERCUTANEOUS LIVER BIOPSY (02/21/2021 10:50 AM CDT) Specimen Impressions Performed At 1. Successful ultrasound guided liver biopsy as descr ibed. [facility] RESULTS Finalized by Pepe Gilman M.D. on 11:26 AM. Dictated by Pepe Gilman M.D. on 02/21/2021 11:25 AM. Narrative Performed At Ultrasound Guided Percutaneous Liver Biopsy [facility] RESULTS INDICATION: Hepatic fibrosis RESOLUTE PROFESSIONAL: Pepe Gilman M.D. MEDICATIONS:I was personally responsibl [...] Guided Percutaneous Liver Biopsy INDICATION: Hepatic fibrosis RESOLUTE PROFESSIONAL: Pepe Gilman M.D. MEDICATIONS:I was personally responsible [...] REQUEST (02/21/2021 9:45 AM CDT) PATHOLOGY [email or web address] Department of Pathology and Laboratory Medicine [address] [place] [address] Surgical Pathology Office: [phone] SURGICAL PATHOLOGY REPORT NAME: ROCHELLE BARRIENTOS SURG PATH #: [id number] MR #: [id number] SPECIMEN CLASS: SI BILLING #: [id number] ALT ID #: LOCATION: [id number] DATE OF [...] in formalin at 1042 on 02/21/2021. (tn) 02/21/2021 Specimen Liver Performing Organization Address City/State/ZIP Code P wu Number [facility] [address] [place] [address] documented in this encounter Visit Diagnoses Diagnosis ISLAS (nonalcoholic steatohepatitis) Other chronic nonalcoholic liver diseas e documented in this encounter Administered Medications Action Date Dose Rate Site Medication Order MAR Action 02/21/2021 10:40 AM CDT 50 mcg fentaNYL citrate PF (SUBLIMAZE) Given injection INTRA-PROCEDURE MED, Starting Sat02/21/21 at 1040, Until Sat02/21/21 at 1040 02/21/2021 10:23 AM CDT 1 mg midazolam (VERSED) injection 1 mg Given 1 mg, Intravenous, ONCE, 1 dose, Sat02/21/21 at 1030 02/21/2021 10:42 AM CDT 1 mg midazolam (VERSED) injection Given INTRA-PROCEDURE MED, Starting 02/21/21 at 1039, Until 02/21/21 at 1042 1 mg Given 02/21/2021 10:39 AM CDT 02/21/2021 10:28 AM CDT 100 mL/hr 100 mL/hr sodium chloride 0.9 % infusion Given - New INTRA-PROCEDURE MED(CONT), Starting Tue Bag 02/21/21 at 1028, Until 02/21/21 at 1043 documented in this encounter Additional Health Concerns Assessment Noted Time A fall risk assessment has been completed for the pat ient 02/21/2021 9:53 AM CDT PHQ-2 Depression Total Score: 0 02/10/2021 10:33 AM CDT documented as of this encounter
--- OUTSIDE RECORDS SUMMARY | 2021-04-03 22:44 | XMS REPORT | Encounter Summary ---
Author Author [facility] Organization [facility] Address Unknown Phone Unavailable Care Team Providers Care Extract Operator Name Role Phone Jacob Messina RN Unavailable Dakotah Evans MD Unavailable Yosvany Muller MD PCP Encounter Details Care Team Description Date Type Department 02/10/2021 Travel Social History Date Tobacco Use Types [...]
--- OUTSIDE RECORDS SUMMARY | 2021-04-03 22:44 | XMS REPORT | Encounter Summary ---
Author Author [facility] Organization [facility] Address Unknown Phone Unavailable Care Team Providers Care Perch Machine Inspector Name Role Phone Jacob Messian RN Unavailable Dakotah Evans MD Unavailable Yosvany Muller MD PCP Encounter Details Care Team Description Date Type Department Dakotah Evans MD [address] [facility] [place] [address] 02/10/2021 Hospital Laboratory: Main Ca mpus, Encounter [facility] [address] [facility] [address] [place] [address] Social History Date Tobacco Use Types Packs/Day [...] impairment: No documented as of this encounter Medications at Time of Discharge [...] Discharge Disposition Code Departure Means Destination Disposition Home Home or Self Care documented in this encounter Plan of Treatment Not on filedocumented as of this encounter Procedures Comments Procedure Name Priority Date/Time Associated Diag nosis HC 25-OH VITAMIN D Routine 02/10/2021 ISLAS (nonal coholic 12:30 PM CDT steatohepatitis) Vitamin D deficiency HC PT(INR) Routine 02/10/2021 ISLAS (nonalcoho lic 12:30 PM CDT steatohepatitis) Vitamin D deficiency HC CBC W/ AUTOMATED DIFF Routine 02/10/2021 ISLAS (nonalcoholic 12:30 PM CDT steatohepatitis) Vitamin D deficiency HC COMPREHENSIVE Routine 02/10/2021 ISLAS (nonalco holic METABOLIC PANEL 12:30 PM CDT steatohepatitis) Vitamin D deficiency documented in this encounter Results * CBC AND DIFF (02/10/2021 12:30 PM CDT) White Blood 8.7 4.5 - 11.0 K/UL [facility] Cells RBC 4.62 4.0 - 5.0 M/UL [facility] Hemoglobin 14.7 12.0 - 15.0 GM/DL [facility] Hematocrit 42.5 36 - 45 % [facility] MCV 92.0 80 - 100 FL [facility] MCH 31.8 26 - 34 PG [facility] MCHC 34.6 32.0 - 36.0 G/DL [facility] RDW 13.9 11 - 15 % [...] P wu Number [facility] [address] [place] [address] * COMPREHENSIVE METABOLIC PANEL (02/10/2021 12:30 PM [...] >60 >60 mL/min [facility] Comment: Dutch The eGFR is not validated f or use in drug dosing adjustments. Continue to use estimated creatinine clearance per dosing reference text. Please contact the Clinical Pharmacist for questions. eGFR >60 >60 mL/min [facility] Dutch Comment: The eGFR is not validated for use in drug dosing adjustments. Continue to use estimated creatinine clearance per dosing reference text. Please contact the Clinical Pharmacist for questions. Specimen Blood Performing Organization Address City/State/ZIP Code P wu Number [facility] [address] [place] [address] * PROTIME INR (PT) (02/10/2021 12:30 PM CDT) INR 2.2 (H) 0.8 - 1.2 [facility] Specimen Blood Performing Organization Address City/[facility]/ZIP Code P wu Number MAIN LAB [address] [place] [address] * 25-OH VITAMIN D (D2 + D3) (02/10/2021 12:30 PM CDT) Vitamin 26.9 (L) 30 - 80 NG/ML [facility] D(25-OH)Total Specimen Blood Performing Organization Address City/State/ZIP Code P wu Number MAIN LAB [address] [place] [address] documented in this encounter Visit Diagnoses Diagnosis ISLAS (nonalcoholic steatohepatitis) Other chronic nonalcoholic liver diseas e Vitamin D deficiency Unspecified vitamin D deficiency documented in this encounter Additional Health Concerns Assessment Noted Time A fall risk assessment has been completed for the pat ient 02/10/2021 10:33 AM CDT PHQ-2 Depression Total Score: 0 02/10/2021 10:33 AM CDT documented as of this encounter
--- OUTSIDE RECORDS SUMMARY | 2021-04-03 22:44 | XMS REPORT | Encounter Summary ---
Author Author [facility] Organization [facility] Address Unknown Phone Unavailable Care Team Providers Care Apprentice Instrument Technician Name Role Phone Jacob Messina RN Unavailable Dakotah Evans MD Unavailable Yosvany Muller MD PCP Reason for Referral * Radiology Services (Routine) Referred By Contact Referred To Contact Status Reason Specialty Diagnoses / Procedures Dakotah Evans MD [address] [place] [address] [place] [place] [address] [place] [id number] No Auth Needed Radiology Diagnoses HOPPER (nonalcoholic steatohepatitis) P rocedures IR PERCUTANEOUS LIVER BIOPSY Electronically signed by Dakotah Evans MD at Reason for Visit * Reason Comments Hopper Encounter Details Care Team Description Date Type Department Dakotah Evans MD [address] [facility] [place] [address] HOPPER (nonalcoholic steatohepatitis) (Cynthia bautista Dx); Vitamin D deficiency 02/10/2021 Office Visit Hepatology: Main [facility] mpus, [facility] [address] [facility] [address], [address] [place] [address] Social History Date Tobacco Use [...] Signs Reading Time Taken Comments Vital Sign 131/60 02/10/2021 10:32 AM CDT Blood Pressure 91 02/10/2021 10:32 AM CDT Pulse 36.4 C (97.6 F) 02/10/2021 10:32 AM CDT Temperature - - Respiratory Rate 95% 02/10/2021 10:32 AM CDT Oxygen Saturation - - Inhaled Oxygen Concentration 99.7 kg (219 lb 12.8 oz) 02/10/2021 10:32 AM CDT Weight 162.6 cm (5' 4") 02/10/2021 10:32 AM CDT Height 37.73 02/10/2021 10:32 AM CDT Body Mass Index documented in [...] this encounter Patient Instructions * Patient Instructions* Fanny Mcbride RN - 02/10/2021 11:20 AM CDT Schedule: 1. Return to clinic in 4 weeks with Jenna San NP 2. Labs today Patient Information: You have said that you recently had labs completed with your primary care. We will request these results for review. We completed a fibroscan today. Your fibroscan shows that you may have advanc ed fibrosis. The result is not consistent with your liver biopsy in [address]. Dr. Evans recommends a liver biopsy to assess if your liver disease has progre ssed. I have placed the order for liver biopsy. Interventional radiology will call you to schedule this. If you do not hear from them within a week you can call [facility] to schedule at [phone]. Your biopsy needs to be completed within 30 days of your lab results to avoid repeating them prior to the procedure. We have also discussed a referral to weight program to help manage your di etary changes. You have stated that you do not want a referral at this time. If you change your mind please let us know. If you have completed labs or imaging today and have not received results within 10 days, please contact our office. Back office tasks: 1. Please request most recent labs from PCP Dr. Muller (CBC, CMP,PT/INR, Hemogl obin A1C) [facility] Dr. Dakotah Mcbride TRANSPORTATION MECHANIC [phone] documented in this encounter Progress Notes * Dakotah Evans MD - 02/10/2021 11:20 AM CDT Date of Service: 02/10/2021 Subjective: Rochelle Shah is a 65 y.o. female. History of Present Illness This is a 65-year-old lady with history of obesity with a BMI of 37 and also his tory of nonspecific dermatitis and fibromyalgia questionable lupus but not on an y immunosuppression treatment. She had a liver biopsy in 2018 that showed Hopper with stage II fibrosis. Overall she has not been able to have significant weigh t loss and has gained 5 pounds instead. She did not have a FibroScan previously and we have a FibroScan today that showed liver stiffness of 14.8 consistent wi cirrhosis and a CAP score of 300. Review of Systems Review of systems as above and per History of Present Illness; otherwise negativ e for 10 of 14 systems reviewed. Objective: CALCIUM CARBONATE (CALCIUM 600 PO) Take 1,200 mg by mouth daily. chlorzoxazone(+) (PARAFON FORTE) 500 mg tablet Take 500 mg by mouth four abdulkadir es daily as needed for Muscle Cramps. cholecalciferol (VITAMIN D-3) 1,000 units tablet Take 1,000 Units by mouth d aily. desipramine(+) (NORPRAMIN) 25 mg tablet Take 25 mg by mouth twice daily. esomeprazole DR(+) (NEXIUM) 40 mg capsule TAKE 1 CAPSULE BY MOUTH TWICE ZOË Y BEFORE MEALS. TAKE ON AN EMPTY STOMACH AT LEAST 1 HOUR BEFORE OR 2 HOURS AFTER FOOD furosemide (LASIX) 20 mg tablet Take 20 mg by mouth as Needed. HYDROcodone/acetaminophen(+) (NORCO) 10/325 mg tablet Take 1 Tab by mouth ev rob 6 hours as needed for Pain methadone (DOLOPHINE; METHADOSE) 10 mg tablet Take 10 mg by mouth three time s daily potassium chloride SR (K-DUR) 20 mEq tablet Take 20 mEq by mouth daily. Take with a meal and a full glass of water. promethazine (PHENERGAN) 25 mg tablet Take 25 mg by mouth every 6 hours as n eeded for Nausea or Vomiting. warfarin (COUMADIN) 5 mg tablet Take 5 mg by mouth four times weekly. 2 1/2 three days a week Vitals: 02/10/21 1032 BP: 131/60 BP Source: Arm, Right Upper Patient Position: Sitting Pulse: 91 Temp: 36.4 C (97.6 F) TempSrc: Oral SpO2: 95% Weight: 99.7 kg (219 lb 12.8 oz) Height: 162.6 cm (64") PainSc: Six Body mass index is 37.73 kg/m. Physical Exam Assessment and Plan: Discussed with patient about management of Hopper with stage II fibrosis back in 2 018 and possible fibrosis progression this time with a liver stiffness of 14.8 k Pa. Of course we have difficulty comparing apples to all range as liver biopsy does not compare directly to FibroScan. Nevertheless there is a will be of fibr osis progression considering the current liver biopsy is more consistent with ci rrhosis. Therefore my plan is to repeat a liver biopsy at this time. Patient h as a history of pulmonary embolism 1 time 2 years ago and I think we can just ho ld Coumadin just for 1 week prior to the planned liver biopsy. Will resume Coum tahir 3 days after the liver biopsy. Discussed with patient about lifestyle changes necessary for weight loss. 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 I do not think enga ging her in an exercise program would be of much help. Patient needs a diet pro gram. Specifically she may benefit from the meal replacement program and shakes from [facility]. Alternatively patient is thinking about joini sukh the weight loss program at [place]. Spent 35 minutes total with patients and reviewing charts. documented in this encounter Plan of Treatment Not on filedocumented as of this encounter Results * IR PERCUTANEOUS LIVER BIOPSY (02/21/2021 10:50 AM CDT) Specimen Impressions Performed At 1. Successful ultrasound guided liver biopsy as descr ibed. [facility] RESULTS Finalized by Pepe Gilman M.D. on 11:26 AM. Dictated by Pepe Gilman M.D. on 02/21/2021 11:25 AM. Narrative Performed At Ultrasound Guided Percutaneous Liver Biopsy [facility] RESULTS INDICATION: Hepatic fibrosis PANTS BUSHELER: Pepe Gilman M.D. MEDICATIONS:I was personally responsibl [...] Guided Percutaneous Liver Biopsy INDICATION: Hepatic fibrosis PANTS BUSHELER: Pepe Gilman M.D. MEDICATIONS:I was personally responsible [...] P wu Number [facility] RESULTS * 25-OH VITAMIN D (D2 + D3) (02/10/2021 12:30 PM CDT) Vitamin 26.9 (L) 30 - 80 NG/ML [facility] D(25-OH)Total Specimen Blood Performing Organization Address City/State/ZIP Code P wu Number [facility] [address] [place] [address] * PROTIME INR (PT) (02/10/2021 12:30 PM CDT) Pathologist [facility] INR 2.2 (H) 0.8 - 1.2 [facility] Specimen Blood Performing Organization Address City/State/ZIP Code P wu Number [facility] [address] [id number] * COMPREHENSIVE METABOLIC PANEL (02/10/2021 12:30 PM CDT) Pathologist [facility] Sodium 143 137 - 147 MMOL/L [facility] [...] >60 >60 mL/min [facility] Comment: [place] The eGFR is not validated f or use in drug dosing adjustments. Continue to use estimated creatinine clearance per dosing reference text. Please contact the Clinical Pharmacist for questions. eGFR >60 >60 mL/min [facility] [place] Comment: The eGFR is not validated for use in drug dosing adjustments. Continue to use estimated creatinine clearance per dosing reference text. Please contact the Clinical Pharmacist for questions. Specimen Blood Performing Organization Address City/State/ZIP Code P wu Number [facility] [address] [place] [address] * CBC AND DIFF (02/10/2021 12:30 PM CDT) Pathologist [facility] White Blood 8.7 4.5 - 11.0 K/UL [...] P wu Number [facility] [address] [place] [address] documented in this encounter Visit Diagnoses Diagnosis HOPPER (nonalcoholic steatohepatitis) - P rimary Other chronic nonalcoholic liver diseas e Vitamin D deficiency Unspecified vitamin D deficiency documented in this encounter Additional Health Concerns Assessment Noted Time A fall risk assessment has been completed for the pat ient 02/10/2021 10:33 AM CDT PHQ-2 Depression Total Score: 0 02/10/2021 10:33 AM CDT documented as of this encounter
== END 2021-04-03 01:32 | disposition home or self-care (01) ==
LOC: EDUNIT# 23:53 → ER FS 23:56
DX: N39.0 Urinary tract infection, site not specified (principal); Z79.01 Long term (current) use of anticoagulants
CPT/HCPCS: 36415; 80053; 81000; 83735; 84484; 85025; 87088; 93005; 93041